=== PATIENT | female | born 1960 | race Caucasian/White ===

== ENCOUNTER 2018-07-27 16:43 | Inpatient (IN) | payer BC ==
[2018-07-27] MEDS: ASPIRIN 325 MG TAB PO (17:54)
[2018-07-27 17:58] LABS: ADD MAN DIFF? NO
[2018-07-27 18:00] LABS: BASOPHILS % 0.2 % (0.0-2.0); EOSINOPHILS # 0.1 10^3/ul (0.0-0.5); HEMATOCRIT 39.4 % (37.0-47.0); HEMOGLOBIN 13.1 g/dl (12.0-16.0); LYMPHOCYTES # 2.6 10^3/ul (0.8-2.9); LYMPHOCYTES % 24.8 % (15.0-51.0); MEAN CORPUSCULAR HEMOGLOBIN 28.1 pg (29.0-33.0); MEAN CORPUSCULAR HGB CONC 33.2 g/dl (32.0-37.0); MEAN CORPUSCULAR VOLUME 84.5 fl (82.0-101.0); MEAN PLATELET VOLUME 9.9 fl (7.4-10.4); MONOCYTE # 0.9 10^3/ul (0.3-0.9); MONOCYTES % 8.1 % (0.0-11.0); NEUTROPHIL # 6.9 10^3/ul (1.6-7.5); NEUTROPHILS % 65.7 % (39.0-77.0); PLATELET COUNT 277 10^3/UL (140-415); RED BLOOD COUNT 4.66 10^6/ul (4.20-5.40); RED CELL DISTRIBUTION WIDTH 12.6 % (11.5-14.5)
[2018-07-27 18:00] LABS: WHITE BLOOD COUNT 10.6 10^3/ul (4.8-10.8)
[2018-07-27 18:23] LABS: ALANINE AMINOTRANSFERASE 31 IU/L (13-69); ALBUMIN 4.4 g/dl (3.3-4.9); ALBUMIN/GLOBULIN RATIO 1.12; ALKALINE PHOSPHATASE 83 IU/L (42-121); ANION GAP 10 (5-13); ASPARTATE AMINO TRANSFERASE 45 IU/L (15-46); BILIRUBIN,INDIRECT 0.3 mg/dl (0-1.1); BILIRUBIN,TOTAL 0.3 mg/dl (0.2-1.3); BLOOD UREA NITROGEN 24 mg/dl (7-20); CALCIUM 9.6 mg/dl (8.4-10.2); CARBON DIOXIDE 22 mmol/L (21-31); CHLORIDE 107 mmol/L (97-110); CREATININE 1.16 mg/dl (0.44-1.00); Estimated GFR 49 mL/min (>60); GLUCOSE 202 mg/dl (70-220); POTASSIUM 4.4 mmol/L (3.5-5.1); SODIUM 139 mmol/L (135-144); TOTAL PROTEIN 8.3 g/dl (6.1-8.1)
[2018-07-27] MEDS: ONDANSETRON 4 MG INJ IV (18:48)
[2018-07-27] MEDS: NITROGLYCERIN (SL) 0.4 MG TAB SL (18:49)
[2018-07-27] MEDS: morphine 2 MG INJ IV (18:49)
[2018-07-27] MEDS ORDERED: ACETAMINOPHEN 325 MG TAB PO (19:30)
[2018-07-27] MEDS ORDERED: ONDANSETRON 4 MG INJ IV (19:30)
[2018-07-27] MEDS ORDERED: ONDANSETRON 4 MG TAB PO (20:00)
[2018-07-27] MEDS ORDERED: BISACODYL (EC) 5 MG TAB PO (20:00)
[2018-07-27] MEDS ORDERED: NITROGLYCERIN (SL) 0.4 MG TAB SL (20:00)
[2018-07-27] MEDS ORDERED: NACL 0.9% 3 ML SYG IV (20:00)
[2018-07-27] MEDS ORDERED: morphine 2 MG INJ IV (20:00)
[2018-07-27] MEDS ORDERED: DEXTROSE 50% 50 ML SYRINGE IV ×2 (20:30)
[2018-07-27] MEDS ORDERED: GLUCOSE GEL 15 GRAM TUBE PO ×2 (20:30)
[2018-07-27] MEDS ORDERED: GLUCAGON 1 MG INJ IM (20:30)
[2018-07-27] MEDS ORDERED: GLUCOSE GEL 15 GRAM TUBE BUCCAL (20:30)
[2018-07-27] MEDS: DOCUSATE SODIUM 100 MG CAP PO (21:12)
[2018-07-27] MEDS: ATORVASTATIN 80 MG TAB PO (21:12)
[2018-07-27 21:13] LABS: CREATINE KINASE 142 IU/L (23-200)
[2018-07-27 21:15] LABS: MAGNESIUM 1.7 mg/dl (1.7-2.5)
[2018-07-27 21:18] LABS: INR 1.04; PROTIME 13.7 Sec (11.9-14.9); PT RATIO 1.1
[2018-07-27] MEDS: INSULIN ASPART [NOVOLOG] 3 ML PEN SC (21:22)
[2018-07-27 21:27] LABS: CK INDEX 7.7
[2018-07-27] MEDS ORDERED: ENOXAPARIN 100 MG/ML SYG SC (22:30)
[2018-07-27] MEDS: ACETAMINOPHEN 325 MG TAB PO (23:02)
[2018-07-27] MEDS: SOD CHLORIDE 0.9% 1,000 ML IV (23:03)
[2018-07-28] MEDS: INSULIN ASPART [NOVOLOG] 3 ML PEN SC ×7 (01:07→21:00)
[2018-07-28] MEDS ORDERED: ACCU-CHEK XX (02:00)
[2018-07-28 03:43] LABS: CREATINE KINASE 155 IU/L (23-200)
[2018-07-28 06:12] LABS: ADD MAN DIFF? NO
[2018-07-28 06:23] LABS: BASOPHILS % 0.2 % (0.0-2.0); EOSINOPHILS # 0.1 10^3/ul (0.0-0.5); EOSINOPHILS % 0.6 % (0.0-7.0); HEMATOCRIT 37.5 % (37.0-47.0); HEMOGLOBIN 12.4 g/dl (12.0-16.0); LYMPHOCYTES # 2.8 10^3/ul (0.8-2.9); LYMPHOCYTES % 28.9 % (15.0-51.0); MEAN CORPUSCULAR HEMOGLOBIN 28.2 pg (29.0-33.0); MEAN CORPUSCULAR HGB CONC 33.1 g/dl (32.0-37.0); MEAN CORPUSCULAR VOLUME 85.4 fl (82.0-101.0); MEAN PLATELET VOLUME 10.1 fl (7.4-10.4); MONOCYTE # 0.7 10^3/ul (0.3-0.9); MONOCYTES % 6.8 % (0.0-11.0); NEUTROPHIL # 6.1 10^3/ul (1.6-7.5); NEUTROPHILS % 63.2 % (39.0-77.0); PLATELET COUNT 245 10^3/UL (140-415); RED BLOOD COUNT 4.39 10^6/ul (4.20-5.40); RED CELL DISTRIBUTION WIDTH 12.9 % (11.5-14.5)
[2018-07-28 06:23] LABS: WHITE BLOOD COUNT 9.7 10^3/ul (4.8-10.8)
[2018-07-28 07:08] LABS: ALANINE AMINOTRANSFERASE 27 IU/L (13-69); ALBUMIN 3.8 g/dl (3.3-4.9); ALBUMIN/GLOBULIN RATIO 1.11; ALKALINE PHOSPHATASE 74 IU/L (42-121); ANION GAP 8 (5-13); ASPARTATE AMINO TRANSFERASE 47 IU/L (15-46); BILIRUBIN,INDIRECT 0.5 mg/dl (0-1.1); BILIRUBIN,TOTAL 0.5 mg/dl (0.2-1.3); BLOOD UREA NITROGEN 26 mg/dl (7-20); CALCIUM 9.2 mg/dl (8.4-10.2); CARBON DIOXIDE 23 mmol/L (21-31); CHLORIDE 108 mmol/L (97-110); CHOL/HDL RATIO 6.1 RATIO; CHOLESTEROL 221 mg/dl (100-200); CREATININE 1.18 mg/dl (0.44-1.00); Estimated GFR 48 mL/min (>60); GLUCOSE 215 mg/dl (70-220); HDL CHOLESTEROL 36 mg/dl (37-92); LDL CHOLESTEROL,CALCULATED 155 mg/dl; MAGNESIUM 1.7 mg/dl (1.7-2.5); POTASSIUM 4.6 mmol/L (3.5-5.1); SODIUM 139 mmol/L (135-144); TOTAL PROTEIN 7.2 g/dl (6.1-8.1); TRIGLYCERIDES 151 mg/dl (0-149)
[2018-07-28 07:57] LABS: THYROID STIMULATING HORMONE 0.705 MIU/L (0.465-4.680)
[2018-07-28 08:41] LABS: CREATINE KINASE 222 IU/L (23-200)
[2018-07-28 08:55] LABS: CK INDEX 8.3
[2018-07-28] MEDS: ASPIRIN (EC) 81 MG TAB PO (09:00)
[2018-07-28] MEDS: CHOLECALCIFEROL 1,000 UNIT TAB PO (09:30)
[2018-07-28] MEDS: ASPIRIN 81 MG TAB PO (09:30)
[2018-07-28] MEDS: BENAZEPRIL 40 MG TAB PO (09:31)
[2018-07-28] MEDS: ENOXAPARIN 80 MG/0.8 ML SYG SC ×2 (09:33)
[2018-07-28] MEDS: METOPROLOL 25 MG TAB PO (15:00)
[2018-07-28] MEDS: SOD CHLORIDE 0.9% 1,000 ML IV ×2 (15:25→19:03)
[2018-07-28] MEDS ORDERED: VERAPAMIL 5 MG INJ ×3 (16:39→17:59)
[2018-07-28] MEDS ORDERED: HEPARIN 1000 UNITS/ML 10 ML INJ (16:39)
[2018-07-28] MEDS ORDERED: NITROGLYCERIN (IC) 100 MCG/ML INJ ×2 (16:39→18:02)
[2018-07-28] MEDS ORDERED: LIDOCAINE 2% (MDV) 20 ML INJ (16:39)
[2018-07-28] MEDS ORDERED: MIDAZOLAM 1 MG/ML 2 ML INJ (16:39)
[2018-07-28] MEDS ORDERED: FENTAnyl 50 MCG/ML VIAL (16:39)
[2018-07-28] MEDS ORDERED: SOD CHLORIDE 0.9% 500 ML (16:39)
[2018-07-28] MEDS ORDERED: IODIXANOL LOCM 100 ML BTL (16:39)
[2018-07-28] MEDS ORDERED: PRASUGREL HYDROCHLORIDE 10 MG TABLET PO (17:40)
[2018-07-28] MEDS ORDERED: DIGOXIN 500 MCG INJ IV (17:46)
[2018-07-28] MEDS ORDERED: BIVALIRUDIN 250MG /NS 50 ML 100 ML IVPB (17:54)
[2018-07-28] MEDS ORDERED: ADENOSINE 4 ML (17:54)
[2018-07-28] MEDS ORDERED: morphine 2 MG INJ IV (18:30)
[2018-07-28] MEDS ORDERED: ONDANSETRON 4 MG INJ (19:57)
[2018-07-28] MEDS: ONDANSETRON 4 MG INJ IV (20:18)
[2018-07-28] MEDS: METOCLOPRAMIDE 10 MG INJ IV (21:12)
[2018-07-28] MEDS: ATORVASTATIN 80 MG TAB PO (22:30)
[2018-07-28 23:08] LABS: ADD MAN DIFF? NO
[2018-07-28 23:10] LABS: BASOPHILS % 0.1 % (0.0-2.0); EOSINOPHILS % 0.2 % (0.0-7.0); HEMATOCRIT 38.1 % (37.0-47.0); HEMOGLOBIN 12.9 g/dl (12.0-16.0); LYMPHOCYTES # 2.1 10^3/ul (0.8-2.9); LYMPHOCYTES % 20.6 % (15.0-51.0); MEAN CORPUSCULAR HEMOGLOBIN 28.4 pg (29.0-33.0); MEAN CORPUSCULAR HGB CONC 33.9 g/dl (32.0-37.0); MEAN CORPUSCULAR VOLUME 83.7 fl (82.0-101.0); MEAN PLATELET VOLUME 10.2 fl (7.4-10.4); MONOCYTE # 0.7 10^3/ul (0.3-0.9); MONOCYTES % 6.5 % (0.0-11.0); NEUTROPHIL # 7.5 10^3/ul (1.6-7.5); NEUTROPHILS % 72.4 % (39.0-77.0); PLATELET COUNT 241 10^3/UL (140-415); RED BLOOD COUNT 4.55 10^6/ul (4.20-5.40); RED CELL DISTRIBUTION WIDTH 12.6 % (11.5-14.5)
[2018-07-28 23:10] LABS: WHITE BLOOD COUNT 10.3 10^3/ul (4.8-10.8)
[2018-07-28 23:19] LABS: ALANINE AMINOTRANSFERASE 37 IU/L (13-69); ALBUMIN/GLOBULIN RATIO 1.25; ALKALINE PHOSPHATASE 79 IU/L (42-121); ANION GAP 9 (5-13); ASPARTATE AMINO TRANSFERASE 124 IU/L (15-46); BILIRUBIN,INDIRECT 0.7 mg/dl (0-1.1); BILIRUBIN,TOTAL 0.7 mg/dl (0.2-1.3); BLOOD UREA NITROGEN 23 mg/dl (7-20); CALCIUM 9.3 mg/dl (8.4-10.2); CARBON DIOXIDE 20 mmol/L (21-31); CHLORIDE 106 mmol/L (97-110); CREATINE KINASE 781 IU/L (23-200); CREATININE 1.15 mg/dl (0.44-1.00); Estimated GFR 49 mL/min (>60); GLUCOSE 171 mg/dl (70-220); MAGNESIUM 1.6 mg/dl (1.7-2.5); POTASSIUM 4.3 mmol/L (3.5-5.1); SODIUM 135 mmol/L (135-144); TOTAL PROTEIN 7.2 g/dl (6.1-8.1)
[2018-07-28 23:28] LABS: B-TYPE NATRIURETIC PEPTIDE 11700 PG/ML (0-125)
[2018-07-28 23:31] LABS: CK INDEX 6.6
[2018-07-28 23:41] LABS: FREE T4 (FREE THYROXINE) 1.37 ng/dl (0.64-1.79)
[2018-07-29] MEDS: MAGNESIUM SULFATE 2 GM/50 ML 50 ML IVPB (00:51)
[2018-07-29 05:01] LABS: ADD MAN DIFF? NO
[2018-07-29 05:12] LABS: BASOPHILS % 0.2 % (0.0-2.0); EOSINOPHILS % 0.4 % (0.0-7.0); HEMOGLOBIN 11.9 g/dl (12.0-16.0); LYMPHOCYTES # 2.9 10^3/ul (0.8-2.9); LYMPHOCYTES % 34.5 % (15.0-51.0); MEAN CORPUSCULAR HEMOGLOBIN 28.1 pg (29.0-33.0); MEAN CORPUSCULAR HGB CONC 33.1 g/dl (32.0-37.0); MEAN CORPUSCULAR VOLUME 84.9 fl (82.0-101.0); MEAN PLATELET VOLUME 9.9 fl (7.4-10.4); MONOCYTE # 0.7 10^3/ul (0.3-0.9); MONOCYTES % 8.8 % (0.0-11.0); NEUTROPHIL # 4.6 10^3/ul (1.6-7.5); NEUTROPHILS % 55.9 % (39.0-77.0); PLATELET COUNT 234 10^3/UL (140-415); RED BLOOD COUNT 4.24 10^6/ul (4.20-5.40); RED CELL DISTRIBUTION WIDTH 12.7 % (11.5-14.5)
[2018-07-29 05:12] LABS: WHITE BLOOD COUNT 8.3 10^3/ul (4.8-10.8)
[2018-07-29 05:39] LABS: ALANINE AMINOTRANSFERASE 38 IU/L (13-69); ALBUMIN 3.6 g/dl (3.3-4.9); ALBUMIN/GLOBULIN RATIO 1.28; ALKALINE PHOSPHATASE 65 IU/L (42-121); ANION GAP 8 (5-13); ASPARTATE AMINO TRANSFERASE 128 IU/L (15-46); BILIRUBIN,INDIRECT 0.6 mg/dl (0-1.1); BILIRUBIN,TOTAL 0.6 mg/dl (0.2-1.3); BLOOD UREA NITROGEN 22 mg/dl (7-20); CALCIUM 8.9 mg/dl (8.4-10.2); CARBON DIOXIDE 25 mmol/L (21-31); CHLORIDE 107 mmol/L (97-110); Estimated GFR 47 mL/min (>60); GLUCOSE 136 mg/dl (70-220); MAGNESIUM 2.5 mg/dl (1.7-2.5); POTASSIUM 4.3 mmol/L (3.5-5.1); SODIUM 140 mmol/L (135-144); TOTAL PROTEIN 6.4 g/dl (6.1-8.1)
[2018-07-29] MEDS: INSULIN ASPART [NOVOLOG] 3 ML PEN SC ×4 (07:35→20:42)
[2018-07-29] MEDS: ASPIRIN (EC) 81 MG TAB PO (08:41)
[2018-07-29] MEDS: CHOLECALCIFEROL 1,000 UNIT TAB PO (08:41)
[2018-07-29] MEDS: BENAZEPRIL 40 MG TAB PO (09:52)
[2018-07-29] MEDS: PRASUGREL HYDROCHLORIDE 10 MG TABLET PO (09:53)
[2018-07-29] MEDS: ATORVASTATIN 80 MG TAB PO (20:43)
[2018-07-29] MEDS: DOCUSATE SODIUM 100 MG CAP PO (20:43)
[2018-07-29] MEDS: INSULIN GLARGINE [LANTus] (100 UNITS/ML) SYG SC (20:53)
[2018-07-30 01:38] LABS: ADD UMIC NO; UR ASCORBIC ACID NEGATIVE (NEGATIVE); UR BILIRUBIN (Dip) NEGATIVE (NEGATIVE); UR BLOOD (Dip) NEGATIVE (NEGATIVE); UR CLARITY CLEAR (CLEAR); UR COLOR STRAW (YELLOW); UR GLUCOSE (Dip) NEGATIVE (NEGATIVE); UR KETONES (Dip) NEGATIVE (NEGATIVE); UR LEUKOCYTE ESTERASE (Dip) NEGATIVE Leu/ul (NEGATIVE); UR NITRITE (Dip) NEGATIVE (NEGATIVE); UR SPECIFIC GRAVITY (Dip) 1.006 (1.003-1.030); UR TOTAL PROTEIN (Dip) NEGATIVE (NEGATIVE); UR UROBILINOGEN (Dip) NEGATIVE (NEGATIVE)
[2018-07-30 01:46] LABS: SODIUM,URINE RANDOM 23 mmol/L (30-90)
[2018-07-30 01:46] LABS: CREATININE,URINE RANDOM 36.01 mg/dl (20-320)
[2018-07-30 05:26] LABS: ADD MAN DIFF? NO
[2018-07-30 05:29] LABS: WHITE BLOOD COUNT 7.6 10^3/ul (4.8-10.8)
[2018-07-30 05:29] LABS: BASOPHILS % 0.3 % (0.0-2.0); EOSINOPHILS # 0.2 10^3/ul (0.0-0.5); HEMATOCRIT 32.6 % (37.0-47.0); HEMOGLOBIN 10.8 g/dl (12.0-16.0); LYMPHOCYTES # 3.1 10^3/ul (0.8-2.9); LYMPHOCYTES % 41.3 % (15.0-51.0); MEAN CORPUSCULAR HEMOGLOBIN 28.1 pg (29.0-33.0); MEAN CORPUSCULAR HGB CONC 33.1 g/dl (32.0-37.0); MEAN CORPUSCULAR VOLUME 84.9 fl (82.0-101.0); MEAN PLATELET VOLUME 10.2 fl (7.4-10.4); MONOCYTE # 0.8 10^3/ul (0.3-0.9); MONOCYTES % 10.2 % (0.0-11.0); NEUTROPHIL # 3.5 10^3/ul (1.6-7.5); NEUTROPHILS % 45.9 % (39.0-77.0); PLATELET COUNT 197 10^3/UL (140-415); RED BLOOD COUNT 3.84 10^6/ul (4.20-5.40); RED CELL DISTRIBUTION WIDTH 12.9 % (11.5-14.5)
[2018-07-30 06:01] LABS: PHOSPHORUS 4.1 mg/dl (2.5-4.9)
[2018-07-30 07:03] LABS: ALANINE AMINOTRANSFERASE 35 IU/L (13-69); ALBUMIN 3.6 g/dl (3.3-4.9); ALBUMIN/GLOBULIN RATIO 1.16; ALKALINE PHOSPHATASE 65 IU/L (42-121); ANION GAP 8 (5-13); ASPARTATE AMINO TRANSFERASE 84 IU/L (15-46); BILIRUBIN,INDIRECT 0.4 mg/dl (0-1.1); BILIRUBIN,TOTAL 0.4 mg/dl (0.2-1.3); BLOOD UREA NITROGEN 36 mg/dl (7-20); CALCIUM 8.6 mg/dl (8.4-10.2); CARBON DIOXIDE 23 mmol/L (21-31); CHLORIDE 108 mmol/L (97-110); CREATININE 1.42 mg/dl (0.44-1.00); Estimated GFR 38 mL/min (>60); GLUCOSE 150 mg/dl (70-220); MAGNESIUM 2.1 mg/dl (1.7-2.5); POTASSIUM 4.6 mmol/L (3.5-5.1); SODIUM 139 mmol/L (135-144); TOTAL PROTEIN 6.7 g/dl (6.1-8.1)
[2018-07-30] MEDS: INSULIN ASPART [NOVOLOG] 3 ML PEN SC ×7 (08:02→21:00)
[2018-07-30] MEDS: DOCUSATE SODIUM 100 MG CAP PO ×2 (09:16→20:56)
[2018-07-30] MEDS: ASPIRIN (EC) 81 MG TAB PO (09:16)
[2018-07-30] MEDS: CHOLECALCIFEROL 1,000 UNIT TAB PO (09:16)
[2018-07-30] MEDS: PRASUGREL HYDROCHLORIDE 10 MG TABLET PO (09:17)
[2018-07-30] MEDS: SOD CHLORIDE 0.9% 1,000 ML IV ×2 (09:59→19:02)
[2018-07-30] MEDS: ATORVASTATIN 80 MG TAB PO (20:56)
[2018-07-30] MEDS: INSULIN GLARGINE [LANTus] (100 UNITS/ML) SYG SC (21:05)
[2018-07-31 05:11] LABS: ADD MAN DIFF? NO
[2018-07-31 05:16] LABS: WHITE BLOOD COUNT 5.8 10^3/ul (4.8-10.8)
[2018-07-31 05:16] LABS: BASOPHILS % 0.5 % (0.0-2.0); EOSINOPHILS # 0.2 10^3/ul (0.0-0.5); HEMATOCRIT 30.1 % (37.0-47.0); HEMOGLOBIN 9.9 g/dl (12.0-16.0); LYMPHOCYTES # 2.5 10^3/ul (0.8-2.9); LYMPHOCYTES % 42.6 % (15.0-51.0); MEAN CORPUSCULAR HGB CONC 32.9 g/dl (32.0-37.0); MEAN CORPUSCULAR VOLUME 85.3 fl (82.0-101.0); MEAN PLATELET VOLUME 10.2 fl (7.4-10.4); MONOCYTE # 0.6 10^3/ul (0.3-0.9); MONOCYTES % 9.6 % (0.0-11.0); NEUTROPHIL # 2.5 10^3/ul (1.6-7.5); NEUTROPHILS % 44.1 % (39.0-77.0); PLATELET COUNT 181 10^3/UL (140-415); RED BLOOD COUNT 3.53 10^6/ul (4.20-5.40); RED CELL DISTRIBUTION WIDTH 12.8 % (11.5-14.5)
[2018-07-31] MEDS: SOD CHLORIDE 0.9% 1,000 ML IV (06:24)
[2018-07-31 06:39] LABS: ALANINE AMINOTRANSFERASE 37 IU/L (13-69); ALBUMIN 3.5 g/dl (3.3-4.9); ALBUMIN/GLOBULIN RATIO 1.45; ALKALINE PHOSPHATASE 62 IU/L (42-121); ANION GAP 10 (5-13); ASPARTATE AMINO TRANSFERASE 60 IU/L (15-46); BILIRUBIN,INDIRECT 0.2 mg/dl (0-1.1); BILIRUBIN,TOTAL 0.2 mg/dl (0.2-1.3); BLOOD UREA NITROGEN 30 mg/dl (7-20); CALCIUM 8.6 mg/dl (8.4-10.2); CARBON DIOXIDE 21 mmol/L (21-31); CHLORIDE 111 mmol/L (97-110); CREATININE 1.24 mg/dl (0.44-1.00); Estimated GFR 45 mL/min (>60); GLUCOSE 102 mg/dl (70-220); MAGNESIUM 1.8 mg/dl (1.7-2.5); POTASSIUM 4.1 mmol/L (3.5-5.1); SODIUM 142 mmol/L (135-144); TOTAL PROTEIN 5.9 g/dl (6.1-8.1)
[2018-07-31] MEDS: INSULIN ASPART [NOVOLOG] 3 ML PEN SC ×4 (08:00→12:04)
[2018-07-31] MEDS: ASPIRIN (EC) 81 MG TAB PO (08:08)
[2018-07-31] MEDS: PRASUGREL HYDROCHLORIDE 10 MG TABLET PO (08:08)
[2018-07-31] MEDS: DOCUSATE SODIUM 100 MG CAP PO (08:08)
[2018-07-31] MEDS: CHOLECALCIFEROL 1,000 UNIT TAB PO (08:09)
[2018-07-31] MEDS: BENAZEPRIL 10 MG TAB PO (09:00)
[2018-07-31] MEDS ORDERED: morphine LIQ (10 MG/5 ML) CUP PO (12:37)
[2018-08-01 15:06] LABS: CREATININE, RANDOM URINE 38 mg/dL (20-275); MICROALBUMIN <0.2 mg/dL; MICROALBUMIN/CREATININE RATIO NOTE (<30)
== END 2018-07-31 15:08 | disposition home or self-care (01) | DRG 247 ==
LOC: FTE 16:43 → ICU 07-28 18:43 → 6WM 07-29 18:23 → TEL 19:30
PROC: 027034Z Dilation of Coronary Artery, One Artery with Drug-eluting Intraluminal Device, Percutaneous Approach (ICD-10-PCS; principal; 2018-07-28 16:51)
PROC: 4A023N7 Measurement of Cardiac Sampling and Pressure, Left Heart, Percutaneous Approach (ICD-10-PCS; 2018-07-28 16:51)
PROC: B211YZZ Fluoroscopy of Multiple Coronary Arteries using Other Contrast (ICD-10-PCS; 2018-07-28 16:51)
PROC: B215YZZ Fluoroscopy of Left Heart using Other Contrast (ICD-10-PCS; 2018-07-28 16:51)
PROC: 5A2204Z Restoration of Cardiac Rhythm, Single (ICD-10-PCS; 2018-07-28 16:51)
DX: I21.4 Non-ST elevation (NSTEMI) myocardial infarction (principal); N17.9 Acute kidney failure, unspecified; I25.5 Ischemic cardiomyopathy; I25.10 Atherosclerotic heart disease of native coronary artery without angina pectoris; I10 Essential (primary) hypertension; E11.9 Type 2 diabetes mellitus without complications; E78.5 Hyperlipidemia, unspecified; Z79.82 Long term (current) use of aspirin; Z79.4 Long term (current) use of insulin; Z79.02 Long term (current) use of antithrombotics/antiplatelets
CPT/HCPCS: 71045; 76775; 80053; 80061; 81003; 82043; 82550; 82553; 82962; 83036; 83735; 83880; 84100; 84155; 84300; 84439; 84443; 84484; 85025; 85610; 85730; 87081; 93005; 93306; 93458; 96374; 96375; 99285-25